=== PATIENT | male | born 2000 | race Asian ===

== ENCOUNTER 2022-07-17 00:35 | Emergency (ER) | payer SELFPAY ==
[~2022-07-17 00:35] MED LIST: Naloxone 0.4 MG/ML SDV ONE; Naloxone 2 MG/2 ML Syringe ONE
[2022-07-17] MEDS ORDERED: Naloxone 0.4 MG/ML SDV IVPUSH ONE (00:50)
[2022-07-17] MEDS ORDERED: Naloxone 2 MG/2 ML Syringe IVPUSH ONE (00:51)
[2022-07-17] MEDS ORDERED: Sodium Chloride 0.9% 1,000 ML IV SCH (01:00)
[2022-07-17 01:47] LABS: ESTIMATED GFR 69 mL/min (>60)
[2022-07-17 01:48] LABS: ACETAMINOPHEN 0 ug/mL (10-30)
[2022-07-17] MEDS ORDERED: Ondansetron 4 MG/2 ML SDV IVPUSH ONE ×3 (07:56→17:17)
[2022-07-17] MEDS ORDERED: Dextrose 5%-Lactated Ringers 1,000 ML IV SCH (09:00)
[2022-07-17] MEDS ORDERED: Lactated Ringers 1,000 ML IV SCH (10:30)
[2022-07-17] MEDS ORDERED: LORazepam 2 MG/ML SDV IVPUSH ONE ×2 (12:54→17:17)
[2022-07-17] MEDS ORDERED: LORazepam 1 MG Tab PO ONE (17:23)
[2022-07-17] MEDS ORDERED: Ondansetron 4 MG Tab.DIS PO ONE (17:45)
== END 2022-07-17 18:20 | disposition home or self-care (01) ==
LOC: JD.ED 00:35 → EDBD 00:35 → JD.ED 18:20
DX: R41.82 Altered mental status, unspecified (principal); F10.229 Alcohol dependence with intoxication, unspecified; E87.6 Hypokalemia; Y90.2 Blood alcohol level of 40-59 mg/100 ml
CPT/HCPCS: 36415; 70450; 80053; 80143; 80179; 80306; 80307; 82550; 82803; 84443; 84484; 85007; 85027; 93005; 96361; 96374; 96375; 96376; 99285; A9270; J2060; J2310; J2405; J7030; J7120; J7121

== ENCOUNTER 2022-07-18 06:54 | Emergency (ER) | payer SELFPAY ==
[2022-07-18] MEDS ORDERED: LORazepam 1 MG Tab PO ONE (08:39)
[2022-07-18] MEDS ORDERED: Ondansetron 4 MG Tab.DIS PO ONE (08:39)
== END 2022-07-18 09:04 ==
LOC: JD.ED 06:54
DX: F10.230 Alcohol dependence with withdrawal, uncomplicated (principal)
CPT/HCPCS: 99285; A9270

== ENCOUNTER 2022-08-06 05:03 | Emergency (ER) | payer SELFPAY ==
[2022-08-06] MEDS ORDERED: Ondansetron 4 MG/2 ML SDV IVPUSH ONE (05:27)
[2022-08-06] MEDS ORDERED: Sodium Chloride 0.9% 10 ML Syringe FLUSH PRN (05:27)
[2022-08-06] MEDS ORDERED: Sodium Chloride 0.9% 1,000 ML IV SCH ×2 (05:30→06:45)
[2022-08-06] MEDS ORDERED: Famotidine 20 MG/2 ML SDV IVPUSH ONE (05:32)
[2022-08-06 05:45] LABS: ESTIMATED GFR 89 mL/min (>60)
[2022-08-06] MEDS ORDERED: LORazepam 2 MG/ML SDV IVPUSH ONE (06:27)
[2022-08-06] MEDS ORDERED: Ondansetron 4 MG Tab.DIS PO ONE (10:02)
[2022-08-06] MEDS ORDERED: LORazepam 1 MG Tab PO ONE (10:02)
== END 2022-08-06 11:20 | disposition home or self-care (01) ==
LOC: JD.ED 05:03
DX: K29.20 Alcoholic gastritis without bleeding (principal); F10.120 Alcohol abuse with intoxication, uncomplicated; R11.2 Nausea with vomiting, unspecified; F17.210 Nicotine dependence, cigarettes, uncomplicated; Y90.0 Blood alcohol level of less than 20 mg/100 ml
CPT/HCPCS: 36415; 80053; 80307; 83690; 83735; 96361; 96374; 96375; 99284; A9270; J2060; J2405; J3490; J7030

== ENCOUNTER 2022-08-06 16:55 | Emergency (ER) | payer SELFPAY | END 2022-08-06 18:15 | disposition other institution (70) | LOC: JD.ED 16:55 | DX: F10.930 Alcohol use, unspecified with withdrawal, uncomplicated (principal) | CPT/HCPCS: 99282; 99285 ==